=== PATIENT | female | born 1950 | race Caucasian/White ===

== ENCOUNTER → 2017-08-28 | Outpatient (CLI) | payer OTHER, BC ==
[~2017-08-28] MED LIST: NS 100 ML IV 100 ML IV ONE
[2017-08-28 10:31] LABS: CREATININE 0.73 mg/dL (0.55-1.02)
--- NOTE | 2017-08-28 12:13 | CT ---
HISTORY: Periumbilical pain Study: CT abdomen and pelvis with contrast Comparison: None Technique: Multiple axial images of the abdomen and pelvis were obtained from the lung bases to the pubic symphy sis with the administration of IV contrast. Dose reduction techniques including automated exposure c ontrol (AEC) and adjustment of mA kV were utilized. Findings: Subsegmental atelectasis and/or scarring are seen within the visualized lungs. The liver, spleen, galeano creas, visualized adrenals, and right kidney are grossly unremarkable in appearance. A somewhat heter ogeneous appearing low-attenuation lesion is seen anteriorly within the inferior pole of the left kid nydia and does not demonstrate Hounsfield units consistent with a simple cyst. An additional subcentime ter low-attenuation lesion seen posteriorly within the left kidney is too small to accurately charact erize. Follow-up renal ultrasound may be performed for further evaluation and if indicated subsequent multi-phase CT and/or MRI. A small umbilical hernia containing fat is noted. Minimal fat stranding s een within and adjacent to this region may reflect inflammatory change. Correlate clinically. There i s questionable cholelithiasis which may be further evaluated with ultrasound. A small hiatal hernia i s noted. Images demonstrate diffuse wall thickening and associated luminal narrowing involving the tr ansverse colon. Mild adjacent areas of mesenteric fat stranding are also noted. These findings may re flect colitis however clinical correlation and continued follow-up is recommended for further evaluat ion. Correlation with colonoscopy may be helpful. There is questionable wall thickening of the sigmoi d colon which may be secondary to lack of distention or perhaps colonic peristalsis. A few scattered diverticula are seen within the sigmoid colon as well. The urinary bladder is unremarkable. Degenerat fredrick changes are seen within the visualized spine. IMPRESSION: Wall thickening of the transverse colon as discussed above. Left renal lesions as noted above. Sigmoid diverticulosis. See above discussion. Small periumbilical hernia containing fat. Questionable cholelithiasis which may be further evaluated with ultrasound as clinically indicated. Other findings as noted above. Reported By:
== END ==
LOC: RAD 09:50
PROVIDERS: ATTEND Internal Medicine
DX: R10.84 Generalized abdominal pain (principal)
CPT/HCPCS: 36415; 74177; 82565; 84520; A4222